=== PATIENT | female | born 1970 | race Native Hawaiian/Other Pacific Islander ===

== ENCOUNTER 2020-06-13 16:13 | Outpatient (CLI) | payer BC, OTHER | END 2020-06-13 22:11 | disposition home or self-care (01) | LOC: INF 16:13 | PROVIDERS: ATTEND Internal Medicine Endocrinology, Diabetes & Metabolism | DX: Z23 Encounter for immunization (principal) | CPT/HCPCS: 96372 ==

== ENCOUNTER 2020-07-11 15:12 | Outpatient (CLI) | payer BC, OTHER | END 2020-07-11 22:53 | disposition home or self-care (01) | LOC: INF 15:12 | PROVIDERS: ATTEND Internal Medicine Endocrinology, Diabetes & Metabolism | DX: Z23 Encounter for immunization (principal) | CPT/HCPCS: 96372 ==